=== PATIENT | male | born 1980 ===

== ENCOUNTER 2017-08-15 22:08 | Emergency (ER) | payer SELFPAY ==
[2017-08-15 22:14] VITALS: BP 115/70
[2017-08-15] MEDS ORDERED: D5NS 0.2% 1,000 ML IV SCH (23:00)
== END 2017-08-15 22:45 | disposition left against medical advice (07) ==
LOC: ED 22:08
DX: D57.1 Sickle-cell disease without crisis (principal); Z53.21 Procedure and treatment not carried out due to patient leaving prior to being seen by health care provider